=== PATIENT | female | born 1995 | race African-American/Black ===

== ENCOUNTER 2017-07-31 18:51 | Emergency (ER) | payer OTHER ==
[~2017-07-31] VITALS: Ht 160 cm; Wt 61.2 kg
[2017-07-31] MEDS ORDERED: ERYTHROMYCIN E3.5 G3 OPHTHALMIC (19:33)
[2017-07-31 19:54] VITALS: BP 120/74
== END 2017-07-31 19:55 | disposition home or self-care (01) ==
LOC: ER 18:51
DX: J02.9 Acute pharyngitis, unspecified (principal); R07.89 Other chest pain; H10.32 Unspecified acute conjunctivitis, left eye; J03.90 Acute tonsillitis, unspecified; J06.9 Acute upper respiratory infection, unspecified; F10.99 Alcohol use, unspecified with unspecified alcohol-induced disorder